=== PATIENT | male | born 1970 | race Caucasian/White ===

== ENCOUNTER 2016-06-23 11:59 | Emergency (ER) | payer OTHER ==
[~2016-06-23 11:59] MED LIST: BACTRIM DS1 TAB PO; CLEOCIN300 MG PO; METHADONE HCL5 MG PO; OXYCODONE/ACETA1 TA1 PO
--- NOTE | 2016-06-23 13:56 | ED MED RECONCILIATION SUMMARY ---
Patient: REDD LAMA Medication Reconciliation Report [facility] VisitID: [id number] [address] [place] [place] [address] 45y, M Registration Date/Time: 06/23/2016 Weight: 87.9 kg Height/Length: 69 in. BMI: 28.6 ALLERGIES: No Known Drug Allergy The patient's Home Medications are listed below: THE FOLLOWING MEDICATIONS NEED TO BE RECONCILED: Bactrim DS Oral 2 tablets, 2x a day Clindamycin HCl Oral 150 mg, 4x a day The source(s) of the original Home Medication information: patient patient's pill bottles The following Medications were given to the patient in the Emergency Department: None. The following Medications were prescribed to the patient: None.
--- NOTE | 2016-06-23 13:56 | ED NURSING NOTES ---
Clinical Report - Nurses [facility] [address] [place] [address] 06/23/2016 12:02 Patient: REDD LAMA TRIAGE Triage time 12:17. Chief Complaint: BOIL and TENDER AREA. --12:24 Dede Wells R.N. 12:17 06/23/16. BP: 126/83. HR: 81. RR: 18. O2 saturation: 95%. Temp: 98.2 F. Pain level now: 12/27. --12:24 Dede Wells R.N. Weight: 87.9 kg stated. Height/Length: 69 inches Per Patient. BMI: 28.6. --12:24 Dede Wells R.N. Medications Bactrim DS Oral 2 tablets, 2x a day. --12:21 Dede Wells R.N. Clindamycin HCl Oral 150 mg, 4x a day. --12:21 Dede Wells R.N. Medication/allergy information source: the patient and patient's pill bottles. --12:24 Dede Wells R.N. Allergies No Known Drug Allergy. --12:20 Dede Wells R.N. History Arrived by private vehicle. Historian: patient. Reported as located on the left thigh and left leg. Onset. (2 weeks ago, worsening since yesterday.). ( Pt had surgical I&D done for MRSA in left thigh the week of . Two weeks ago after suture removal the patient developed a lesion approx 4" down the thigh from the sutured site. Pt. is still taking his ABX appropriately. Yesterday the lesion grew larger and pain is constant. Area is reddened). PAST MEDICAL HX: Immunizations: up-to-date. SOCIAL HX: Smoker- current status unknown (clove cigars, 4-5 per day). Alcohol use; consumes five beers a week. Infectious disease exposure. (MRSA). --12:24 Dede Wells R.N. PROBLEMS: MRSA Infection. --12:20 Dede Wells R.N. PHYSICAL ASSESSMENT GENERAL / NEURO / PSYCH: Alert. The patient does not appear to be in acute distress. Oriented X 4. RESPIRATORY: Respirations not labored. SKIN: Skin is intact, warm and dry. Single medium-sized skin lesion with erythema, tenderness and increased warmth on the left thigh. --12:25 Dede Wells R.N. NURSING PROGRESS NOTES Reassurance given. Call light placed in reach. Side rails up x 1. Patient ready for evaluation. Patient waiting for evaluation. --12:25 Dede Wells R.N. DISPOSITION / DISCHARGE Departure time: 13:44. The patient left the Emergency Department without being seen by a physician; patient was unaccompanied. The patient appears to be alert, oriented x4, coherent and in no acute distress. 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 Prior to leaving the ED, he was advised to return if needed. He left the Emergency Department ambulatory and via private vehicle. --13:45 Dede Wells R.N. Locked/Released at 06/23/2016 13:46 by Dede Wells R.N.
--- NOTE | 2016-06-23 13:56 | ED NURSING NOTES ---
Clinical Report - Nurses [facility] [address] [place] [address] 06/23/2016 12:02 Patient: REDD LAMA TRIAGE Triage time 12:17. Chief Complaint: BOIL and TENDER AREA. --12:24 Dede Wells R.N. 12:17 06/23/16. BP: 126/83. HR: 81. RR: 18. O2 saturation: 95%. Temp: 98.2 F. Pain level now: 12/27. --12:24 Dede Wells R.N. Weight: 87.9 kg stated. Height/Length: 69 inches Per Patient. BMI: 28.6. --12:24 Dede Wells R.N. Medications Bactrim DS Oral 2 tablets, 2x a day. --12:21 Dede Wells R.N. Clindamycin HCl Oral 150 mg, 4x a day. --12:21 Dede Wells R.N. Medication/allergy information source: the patient and patient's pill bottles. --12:24 Dede Wells R.N. Allergies No Known Drug Allergy. --12:20 Dede Wells R.N. History Arrived by private vehicle. Historian: patient. Reported as located on the left thigh and left leg. Onset. (2 weeks ago, worsening since yesterday.). ( Pt had surgical I&D done for MRSA in left thigh the week of . Two weeks ago after suture removal the patient developed a lesion approx 4" down the thigh from the sutured site. Pt. is still taking his ABX appropriately. Yesterday the lesion grew larger and pain is constant. Area is reddened). PAST MEDICAL HX: Immunizations: up-to-date. SOCIAL HX: Smoker- current status unknown (clove cigars, 4-5 per day). Alcohol use; consumes five beers a week. Infectious disease exposure. (MRSA). --12:24 Dede Wells R.N. PROBLEMS: MRSA Infection. --12:20 Dede Wells R.N. PHYSICAL ASSESSMENT GENERAL / NEURO / PSYCH: Alert. The patient does not appear to be in acute distress. Oriented X 4. RESPIRATORY: Respirations not labored. SKIN: Skin is intact, warm and dry. Single medium-sized skin lesion with erythema, tenderness and increased warmth on the left thigh. --12:25 Dede Wells R.N. NURSING PROGRESS NOTES Reassurance given. Call light placed in reach. Side rails up x 1. Patient ready for evaluation. Patient waiting for evaluation. --12:25 Dede Wells R.N. DISPOSITION / DISCHARGE Departure time: 13:44. The patient left the Emergency Department without being seen by a physician; patient was unaccompanied. The patient appears to be alert, oriented x4, coherent and in no acute distress. 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 Prior to leaving the ED, he was advised to return if needed. He left the Emergency Department ambulatory and via private vehicle. --13:45 Dede Wells R.N. Locked/Released at 06/23/2016 13:46 by Dede Wells R.N.
--- NOTE | 2016-06-23 13:56 | ED MAR SUMMARY ---
..... Medication Administration Record [facility] [address] [place], [place] [id number] Patient: REDD LAMA Visit ID: [id number] 45y, M Weight: 87.9 kg Height/Length: 69 in BMI: 28.6 ALLERGIES: No Known Drug Allergy
--- NOTE | 2016-06-23 13:56 | ED MAR SUMMARY ---
..... Medication Administration Record [facility] [address] [place], [place] [id number] Patient: REDD LAMA Visit ID: [id number] 45y, M Weight: 87.9 kg Height/Length: 69 in BMI: 28.6 ALLERGIES: No Known Drug Allergy
--- NOTE | 2016-06-23 13:56 | ED MED RECONCILIATION SUMMARY ---
Patient: REDD LAMA Medication Reconciliation Report [facility] VisitID: [id number] [address] [place] [place] [address] 45y, M Registration Date/Time: 06/23/2016 Weight: 87.9 kg Height/Length: 69 in. BMI: 28.6 ALLERGIES: No Known Drug Allergy The patient's Home Medications are listed below: THE FOLLOWING MEDICATIONS NEED TO BE RECONCILED: Bactrim DS Oral 2 tablets, 2x a day Clindamycin HCl Oral 150 mg, 4x a day The source(s) of the original Home Medication information: patient patient's pill bottles The following Medications were given to the patient in the Emergency Department: None. The following Medications were prescribed to the patient: None.
== END 2016-06-23 13:56 | disposition left against medical advice (07) ==
LOC: ED SRH 11:59
DX: Z53.21 Procedure and treatment not carried out due to patient leaving prior to being seen by health care provider (principal)